=== PATIENT | female | born 1970 | race Caucasian/White ===

== ENCOUNTER → 2016-08-09 | Outpatient (CLI) | payer BC, MEDICARE ==
[2016-08-09 17:30] LABS: Anion Gap 10 mmol/L; Blood Urea Nitrogen 13 mg/dL (7-17); Carbon Dioxide 29 mmol/L (22-30); Chloride 101 mmol/L (98-107); Glucose 85 mg/dL (74-99); Non-African American GFR(MDRD) >60 (>60 ml/min/1.73 sqM); Sodium 140 mmol/L (137-145)
== END | disposition home or self-care (01) ==
LOC: LABWHC1 16:50
PROVIDERS: ATTEND Internal Medicine Critical Care Medicine
DX: R60.9 Edema, unspecified (principal)
CPT/HCPCS: 36415; 80048

== ENCOUNTER → 2016-09-14 | Outpatient (CLI) | payer BC ==
[2016-09-14 18:00] LABS: Rheumatoid Factor, Qnt <9 IU/mL (<12)
[2016-09-14 18:01] LABS: C Reactive Protein 12.7 mg/L (<10.0)
== END | disposition home or self-care (01) ==
LOC: LABWHC1 16:34
PROVIDERS: ATTEND Internal Medicine Critical Care Medicine
DX: M79.7 Fibromyalgia (principal); R53.83 Other fatigue; L65.9 Nonscarring hair loss, unspecified; R52 Pain, unspecified; R50.9 Fever, unspecified; R21 Rash and other nonspecific skin eruption
CPT/HCPCS: 36415; 84439; 84443; 85652; 86038; 86140; 86431

== ENCOUNTER → 2016-09-18 | Outpatient (CLI) | payer BC | END | disposition home or self-care (01) | LOC: LABWHC1 10:38 | PROVIDERS: ATTEND Internal Medicine Critical Care Medicine | DX: M79.7 Fibromyalgia (principal) | CPT/HCPCS: 36415; 86235 ==

== ENCOUNTER → 2017-02-26 | Outpatient (CLI) | payer BC ==
--- NOTE | 2017-02-26 10:47 | MM ---
Reason for exam: additional evaluation requested from prior study. Last mammogram was performed 3 years and 3 months ago. History: Patient is postmenopausal. Family history of breast cancer in maternal aunt and breast cancer in maternal grandmother. Benign right breast aspiration of the right breast, June 15, 2011. Physical Findings: Nurse did not find any significant physical abnormalities on exam. MG 3D Diag Mammo W/Cad ELDER Bilateral CC and MLO view(s) were taken. Prior study comparison: November 18, 2013, bilateral MG diagnostic mammo w CAD ELDER. November 07, 2012, CAD bilateral diagnostic mammogram. The breast tissue is heterogeneously dense. This may lower the sensitivity of mammography. Increasing nodular distortion upper outer right breast with a few internal microcalcifications. These results were verbally communicated with the patient and result sheet given to the patient on 02/26/17. ASSESSMENT: Suspicious, BI-RAD 4 RECOMMENDATION: Stereotactic core biopsy of the right breast. Called Dr. Cross with mammographic findings and has scheduled an appointment for the patient for 03/28/17 at 10:[address] Yates. Biopsy scheduled 03/07/17 at 10:00. PRELIMINARY REPORT CALLED AND FAXED TO DR. YATES ON 02/26/17.
== END | disposition home or self-care (01) ==
LOC: RADMAMWWP 09:00
PROVIDERS: ATTEND Internal Medicine Critical Care Medicine
DX: R92.8 Other abnormal and inconclusive findings on diagnostic imaging of breast (principal)
CPT/HCPCS: G0204; G0279

== ENCOUNTER → 2017-03-07 | Day surgery (SDC) | payer BC ==
[2017-03-07 09:53] VITALS: RESP 16; BMI 35.9
[2017-03-07 11:10] VITALS: BP 121/85; PULSE 85; TEMP 98.2
--- NOTE | 2017-03-07 13:33 | MM ---
EXAMINATION TYPE: MG stereo VAD BX RT DATE OF EXAM: 03/07/2017 COMPARISON: Mammogram 11/18/2013, 02/26/2017 CLINICAL HISTORY: Architectural distortion and calcifications TECHNIQUE: Stereotactic guided core biopsy of right breast. FINDINGS: The procedure of stereotactic guided core biopsy was explained to the patient. Benefits, alternatives, and risks were discussed. An informed consent was then obtained. A timeout was performed. The shortness pathway for biopsy was chosen. Shortness pathway was superior cc approach. Dr. Donaldson performed the targeting and the procedure. A vacuum assisted biopsy gun was used to obtain 6 core samples. The patient tolerated the procedure well without any immediate complication. The patient was kept in the radiology department for short stay after the procedure and then discharged home in stable condition. Targeted calcifications are identified in specimen mammogram. Post biopsy mammogram shows the clip to appear in satisfactory position relative to the targeted area of concern on the preprocedure images. Post procedure mammogram was requested. Surgical clip is within the upper outer aspect right breast corresponding to the architectural distortion. Specimen demonstrates calcifications within the specimen. Given the ultrasound results which likely correspond to the mammographic imaging confirmation of the biopsy site also includes ultrasound abnormalities is recommended. The patient was scheduled for a short-term follow-up exam to relocate findings and see if biopsy changes are at that site. IMPRESSION: 1. Successful stereotactic core biopsy right breast upper outer quadrant. Pathology Results: High Risk BREAST, RIGHT, CORE BIOPSY: FEATURES CONSISTENT WITH INTRADUCTAL PAPILLOMA, FOCALLY SCLEROTIC. BACKGROUND FIBROCYSTIC CHANGES INCLUDING SCLEROSING ADENOSIS , FIBROSIS, CYSTS AND COLUMNAR CELL HYPERPLASIA. Recommendation Surgical consult of the right breast. SEVEN
== END ==
LOC: RADMAMWWP 09:06
PROVIDERS: ATTEND Surgery
DX: N60.21 Fibroadenosis of right breast (principal); N60.31 Fibrosclerosis of right breast; N62 Hypertrophy of breast; Z88.0 Allergy status to penicillin
CPT/HCPCS: 88305; 19081; A4648; J2001

== ENCOUNTER 2017-03-28 10:32 | Day surgery (SDC) | payer BC ==
[2017-03-22 15:37] VITALS: BMI 36.3
[~2017-03-28 10:32] MED LIST: ALPRAZolam 0.5 MG TAB PO PRN; DEXAMETHASONE SOD PHOSPHATE 10 MG/ML 1 ML VIAL IV ONE; HEPARIN SODIUM,PORCINE 5,000 UNIT/ML 1 ML VIAL SQ ONE; HYDROmorphone 0.5 MG/0.5 ML SYRINGE IVP PRN; LACTATED RINGERS 1,000 ML IV SCH; LIDOCAINE 1% 20 ML VIAL (10MG/ML) FOR IV START INTRADERMA PRN; ONDANSETRON 4 MG/2 ML VIAL IVP PRN; Pre Op ABX Message 1 EACH MISC MISCELLANE ONE; SCOPOLAMINE 1.5MG/72HR PATCH TRANSDERM ONE
[2017-03-28] MEDS ORDERED: SODIUM BICARB 4% 5 ML VIAL (0.48 MEQ/ML) MISCELLANE ONE (11:48)
[2017-03-28] MEDS ORDERED: LIDOCAINE 1% INJ 10MG/ML (20 ML MDV) SQ ONE (11:48)
[2017-03-28] MEDS ORDERED: fentaNYL (PF) 50 MCG/ML 2 ML AMP ONE (12:57)
[2017-03-28] MEDS ORDERED: LIDOCAINE 1% INJ 10MG/ML (20 ML MDV) ONE (12:57)
[2017-03-28] MEDS ORDERED: ePHEDrine SULFATE/0.9% NACL/PF 50 MG/5 ML SYRINGE IV ONE (12:57)
[2017-03-28] MEDS ORDERED: MIDAZOLAM 2 MG/2 ML VIAL ONE (12:57)
[2017-03-28] MEDS ORDERED: SUCCINYLCHOLINE CHLORIDE 100 MG/5 ML SYR IV ONE (12:57)
[2017-03-28] MEDS ORDERED: PROPOFOL 10 MG/ML 20 ML VIAL IV ONE (12:57)
[2017-03-28] MEDS ORDERED: SODIUM CHLORIDE 0.9% 50 ML with ceFAZolin 2,000 MG IV ONE ×2 (13:17)
[2017-03-28] MEDS ORDERED: BUPIVACAINE (PF) 0.25% 30 ML VIAL SQ ONE ×2 (13:22)
[2017-03-28 14:10] VITALS: TEMP 98
--- NOTE | 2017-03-28 14:41 | MM ---
EXAMINATION TYPE: MG pre op needle loc RT, MG surgical specimen RT DATE OF EXAM: 03/28/2017 COMPARISON: 02/26/2017 CLINICAL HISTORY: 46-year-old female referred for needle localization biopsy proven intraductal papilloma for excision. TECHNIQUE: Needle localization with wire placement and surgical excision of area of concern in the right breast. FINDINGS: The procedure of needle localization with wire placement and than surgical excision was explained to the patient. Benefits, alternatives, and risks were discussed. An informed consent was then obtained. The shortest pathway for procedure was chosen. Shortest pathway was a lateral approach. The overlying skin was prepped and draped in usual sterile fashion. Lidocaine buffered with bicarbonate was used as anesthetic into the skin and subcutaneous tissue up to the level of area of concern. A 7 cm Kopan's needle was used. It was placed via a lateral approach under mammographic guidance. Subsequent 90 degrees mammogram show the needle to be in satisfactory position relative to the targeted area. At this point, wire was placed and the needle was withdrawn. The wire was fixed to patient's skin. Images were marked for surgeon. The patient tolerated the procedure well without any immediate complication. The patient was kept in the radiology department for short stay after the procedure and then taken to surgery for surgical excision. Wire and targeted microclip are identified in specimen mammogram. The patient was kept in hospital for short stay after the procedure and then discharged home in stable condition. IMPRESSION: Successful, uncomplicated needle localization with wire placement and surgical excision of biopsy-proven intraductal papilloma in the right breast, full pathology results to follow. Pathology Results: Malignant BREAST, RIGHT, IMAGE GUIDED LOCALIZATION AND RESECTION: LOBULAR CARCINOMA IN SITU. INTRADUCTAL PAPILLOMA AND RADIAL SCAR/SCLEROSING LESION. PROLIFERATIVE FIBROCYSTIC CHANGE (STROMAL FIBROSIS, CYST FORMATION, APOCRINE METAPLASIA, ADENOSIS AND DUCT HYPERPLASIA). BIOPSY SITE CHANGE. Recommendation Surgical consult of the right breast. RENED
[2017-03-28] MEDS ORDERED: NALOXONE 0.4 MG/ML 1 ML VIAL IV PRN (14:44)
--- NOTE | 2017-03-28 14:46 | P.OP ---
Date of Procedure: 03/28/17 Procedure(s) Performed: PREOPERATIVE DIAGNOSIS: Abnormal right mammogram POSTOPERATIVE DIAGNOSIS: Same PROCEDURE: Right Breast wire localization biopsy SURGEON: [place] EBL: Minimal ANESTHESIA: Sedation plus local COMPLICATIONS: None OPERATIVE PROCEDURE: Patient was placed on the operating room table in the supine position. The patient's breast was prepped and draped in usual sterile fashion. A curvilinear incision was made adjacent areola at the 9 o'clock position. Dissection through the breast tissue took place until the wire was identified. I followed the wire down into the breast tissue. The breast tissue around the tip of the wire was fully excised using electrocautery. The specimen was sent for specimen radiogram. The clip was present within the specimen. The subcutaneous tissues were inspected. No bleeding was seen. I placed 3 clips at the site of the biopsy in the event that the pathology revealed malignancy. The subcutaneous tissues were closed using 3-0 Vicryl sutures. The skin was closed using a running 4-0 Monocryl stitch. Steri- Strips and sterile dressings were applied. DISPOSITION: Stable to recovery room
[2017-03-28 15:04] VITALS: RESP 18
[2017-03-28 15:21] VITALS: BP 129/80; PULSE 100
== END 2017-03-28 15:50 | disposition home or self-care (01) ==
LOC: OR 10:32
PROVIDERS: ATTEND Surgery
DX: D05.01 Lobular carcinoma in situ of right breast (principal); D24.1 Benign neoplasm of right breast; N60.31 Fibrosclerosis of right breast; N60.81 Other benign mammary dysplasias of right breast; N60.21 Fibroadenosis of right breast; N60.91 Unspecified benign mammary dysplasia of right breast; Z80.3 Family history of malignant neoplasm of breast; J45.909 Unspecified asthma, uncomplicated; M79.7 Fibromyalgia; I10 Essential (primary) hypertension; G43.909 Migraine, unspecified, not intractable, without status migrainosus; Z79.2 Long term (current) use of antibiotics; Z79.891 Long term (current) use of opiate analgesic; Z79.52 Long term (current) use of systemic steroids; Z79.899 Other long term (current) drug therapy; Z98.51 Tubal ligation status
CPT/HCPCS: 88342; 88307; 88341; 76098; 19281; 19125; J2250; J1644; J1100; J2405; J2001; J3010; J0690; J0330; J2704

== ENCOUNTER → 2017-07-16 | Outpatient (CLI) | payer BC ==
[2017-07-16 08:44] VITALS: BP 140/94; PULSE 99; TEMP 98.5; BMI 35.3
--- NOTE | 2017-07-16 09:21 | P.HPOB ---
History of Present Illness H&P Date: 07/16/17 Chief Complaint: Is here for her routine gynecologic exam. This is a 47-year-old with an LMP of 2013. She is status post L AVH for uterine fibroids in 2013. She has occasional mild hot flashes but thinks this may be from that tamoxifen that she takes. She is without gynecologic complaints. She had a breast biopsy within the past 6 months that showed lobular carcinoma in situ. She is followed for her breasts by Dr. Lea and he has her on tamoxifen. Review of Systems Patient's weight has been stable. She denies respiratory, cardiac, or G.I. problems. Past Medical History Past Medical History: Asthma, COPD, Fibromyalgia, GERD/Reflux, Hypertension, Pneumonia, Thyroid Disorder Additional Past Medical History / Comment(s): Right breast lobular carcinoma in situ. Severe persistent bronchial asthma, pseudomonas in lungs in past, migraines, POSSIBLE TIA PER MRI , meniere's , vertigo, low back pain. 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 She tested negative for BRCA. History of Any Multi-Drug Resistant Organisms: None Reported Past Surgical History: Breast Surgery (Multiple biopsies), Hysterectomy (L AVH in 2013 for fibroids), Tubal Ligation Additional Past Surgical History / Comment(s): D&C, ANAL FISSURECTOMY, BRONCHOSCOPIES with last time being 07/29/15, bronchoscopy , D&C, picc line x 2. Past Anesthesia/Blood Transfusion Reactions: Motion Sickness Additional Past Anesthesia/Blood Transfusion Reaction / Comment(s): Pt received blood with hysterectomy without reaction. Past Psychological History: Anxiety, Depression Additional Psychological History / Comment(s): LIVES AT HOME WITH SPOUSE AND 3 CHILDREN,IS INDEPENDANT. Has nebulizer. 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 - Past Family History Father History Unknown: Yes Additional Family Medical History / Comment(s): A maternal aunt and maternal grandmother had breast cancer. Mother Family Medical History: Thyroid Disorder Additional Family Medical History / Comment(s): GRAVES DISEASE, DIVERTICULITIS Medications and Allergies Home Medications Medication Instructions Recorded Confirmed Type ALPRAZolam [Xanax] 0.5 mg PO BID PRN 08/26/14 07/16/17 History Cyclobenzaprine [Flexeril] 10 mg PO HS 08/26/14 07/16/17 History Montelukast [Singulair] 10 mg PO HS 08/26/14 07/16/17 History EPINEPHrine (Auto Inject) [Epipen] 0.3 mg IM DAILY PRN 07/15/15 07/16/17 History Magnesium 500 mg PO BID 07/15/15 07/16/17 History Omalizumab [Xolair] 300 mg SQ Q30D 07/15/15 07/16/17 History Gabapentin [Neurontin] 300 mg PO BID 02/26/17 07/16/17 History HYDROcodone/APAP 7.5-325MG [[place] 1 tab PO TID PRN 02/26/17 07/16/17 History 7.5-325] Ipratropium-Albuterol Nebulize 3 ml INHALATION RT-QID PRN 03/22/17 07/16/17 History [Duoneb 0.5 mg-3 mg/3 ml Soln] Albuterol Sulfate [Proair mcg PO PRN 07/16/17 07/16/17 History Respiclick] Rfqlaewwuf-NFG-Xwwewha-Codeine cap PO Q4-6H 07/16/17 History [Fiorinal w/Cod 03-706-53-30MG] Cholecalciferol [Vitamin D3] unit PO TID 07/16/17 History Cyanocobalamin (Vitamin B-12) mcg PO DAILY 07/16/17 History [Vitamin B12] Milnacipran HCl [Savella] mg PO BID 07/16/17 History Potassium mg PO DAILY 07/16/17 History Tamoxifen Citrate 20 mg PO HS 07/16/17 07/16/17 History Allergies Allergy/AdvReac Type Severity Reaction Status Date / Time No Known Allergies Allergy Verified 07/16/17 08:09 Exam - Vital Signs Vital signs: Vital Signs Temp Pulse BP 07/16/17 08:08 98.5 F 99 140/94 Intake and Output 07/15/17 07/16/17 07/16/17 22:59 06:59 14:59 Other: Weight 99.337 kg Height 5'6", BMI 35.3. This is a well-developed well-nourished white female who is alert and oriented times 3 in no acute distress. HEENT: Within normal limits. NECK: Supple without mass or thyromegaly. CHEST AND LUNGS: Clear to auscultation. HEART: Regular rate and rhythm. BREASTS: Are without mass or discharge. There is central nipple inversion of the left breast. The right breast nipple is not inverted. AXILLARY EXAM: Negative for adenopathy. BACK: Negative for CVA tenderness. ABDOMEN: Soft, nontender, without palpable masses. PELVIC EXAM: External genitalia appears normal without significant atrophy. Vagina appears normal without atrophy. There is no evidence of prolapse. Bimanual examination is negative for mass or tenderness. RECTAL EXAM: Rectal exam is negative for mass or tenderness and is negative for occult blood. EXTREMITIES: Nontender. IMPRESSION: 1. 47-year-old female status post LAVH for benign reasons with normal gynecologic exam. 2. History of right breast lobular carcinoma in situ with family history of breast cancer who is on tamoxifen. 3. Negative testing for BRCA per the patient. PLAN: 1. Pap smears have been discontinued. 2. Self breast awareness was discussed. 3. I have recommended that she check her blood pressure on a regular basis and she states she will do this at work. She will follow-up with Dr. Cross for blood pressure elevations. 4. She states she will do her mammograms through Dr. Lea and she believes she is due for one in the next 2 months. 5. Osteoporosis prevention was discussed. 6. She will return one year.
== END | disposition home or self-care (01) ==
LOC: WWCWWP 07:41
PROVIDERS: ATTEND Obstetrics & Gynecology
DX: Z01.419 Encounter for gynecological examination (general) (routine) without abnormal findings (principal)

== ENCOUNTER → 2017-07-26 | Outpatient (CLI) | payer BC ==
[2017-07-26 17:32] LABS: Magnesium 2.1 mg/dL (1.6-2.3); Phosphorus 3.6 mg/dL (2.5-4.5)
[2017-07-27 00:47] LABS: Iron Saturation 13.32 (12.00-45.00)
[2017-07-27 00:57] LABS: Folate, Serum 15.7 ng/mL
== END | disposition home or self-care (01) ==
LOC: LABWHC1 16:35
PROVIDERS: ATTEND Internal Medicine Critical Care Medicine
DX: M79.7 Fibromyalgia (principal); I10 Essential (primary) hypertension; J45.909 Unspecified asthma, uncomplicated
CPT/HCPCS: 36415; 82607; 82728; 82746; 83540; 83550; 83735; 84100; 84132

== ENCOUNTER → 2017-09-24 | Outpatient (CLI) | payer BC ==
--- NOTE | 2017-09-24 08:57 | MM ---
Reason for exam: follow-up at short interval from prior study. Last mammogram was performed 7 months ago. History: Patient is postmenopausal, has history of breast cancer at age 46, and has history of high-risk lesion on a previous biopsy at age 46. Family history of breast cancer in maternal aunt at age 50 and breast cancer in maternal grandmother. Malignant MG pre op needle loc RT of the right breast, March 28, 2017. High risk MG stereo VAD BX RT of the right breast, March 07, 2017. Benign right breast aspiration of the right breast, June 15, 2011. Taking antineoplastic for 6 months beginning at age 46. Physical Findings: Nurse did not find any significant physical abnormalities on exam. MG Diagnostic Mammo RT w CAD CC, MLO, and XCCL view(s) were taken of the right breast. Prior study comparison: February 26, 2017, bilateral MG 3d diag mammo w/cad ELDER. November 18, 2013, bilateral MG diagnostic mammo w CAD ELDER. The breast tissue is heterogeneously dense. This may lower the sensitivity of mammography. Finding: There are clips in the upper outer quadrant, posterior middle position of the right breast. There is a chronic nodularity in the right breast. There is no discrete abnormality. These results were verbally communicated with the patient and result sheet given to the patient on 09/24/17. ASSESSMENT: Benign, BI-RAD 2 RECOMMENDATION: Follow-up diagnostic mammogram of both breasts in 6 months. Back on schedule for February 2018.
== END | disposition home or self-care (01) ==
LOC: RADMAMWWP 06:59
PROVIDERS: ATTEND Surgery
DX: R92.8 Other abnormal and inconclusive findings on diagnostic imaging of breast (principal)
CPT/HCPCS: 77065

== ENCOUNTER → 2018-03-18 | Outpatient (CLI) | payer BC ==
--- NOTE | 2018-03-22 13:49 | MM ---
Reason for exam: follow-up at short interval from prior study. Last mammogram was performed 6 months ago. History: Patient is postmenopausal, has history of breast cancer at age 46, and has history of high-risk lesion on a previous biopsy at age 46. Family history of breast cancer in maternal aunt at age 50 and breast cancer in maternal grandmother. Malignant MG pre op needle loc RT of the right breast, March 28, 2017. High risk MG stereo VAD BX RT of the right breast, March 07, 2017. Benign right breast aspiration of the right breast, June 15, 2011. Taking tamoxifen beginning at age 46. Taking antineoplastic for 6 months beginning at age 46. Physical Findings: Nurse did not find any significant physical abnormalities on exam. MG 3D Diag Mammo W/Cad ELDER Bilateral CC and MLO view(s) were taken. XCCL view(s) were taken of the left breast. Prior study comparison: September 24, 2017, right breast MG diagnostic mammo RT w CAD. February 26, 2017, bilateral MG 3d diag mammo w/cad ELDER. The breast tissue is heterogeneously dense. This may lower the sensitivity of mammography. Post surgical changes right breast with lumpectomy scar. Stable small adjacent nodule, likely cyst, smaller from 2016. Six month follow up to assess evolving post biopsy changes. These results were verbally communicated with the patient and result sheet given to the patient on 03/18/18. ASSESSMENT: Probably benign, BI-RAD 3 RECOMMENDATION: Follow-up diagnostic mammogram of the right breast in 6 months.
== END | disposition home or self-care (01) ==
LOC: RADMAMWWP 08:13
PROVIDERS: ATTEND Surgery
DX: R92.8 Other abnormal and inconclusive findings on diagnostic imaging of breast (principal)
CPT/HCPCS: 77062; 77066

== ENCOUNTER → 2018-10-28 | Outpatient (CLI) | payer BC ==
--- NOTE | 2018-10-28 10:19 | MM ---
Reason for exam: follow-up at short interval from prior study. Last mammogram was performed 7 months ago. History: Patient is postmenopausal, has history of breast cancer at age 46, and has history of high-risk lesion on a previous biopsy at age 46. Family history of breast cancer in maternal aunt at age 50 and breast cancer in maternal grandmother. Malignant MG pre op needle loc RT of the right breast, March 28, 2017. High risk MG stereo VAD BX RT of the right breast, March 07, 2017. Benign right breast aspiration of the right breast, June 15, 2011. Taking tamoxifen beginning at age 46. Taking antineoplastic for 6 months beginning at age 46. Physical Findings: Nurse did not find any significant physical abnormalities on exam. MG Diagnostic Mammo RT w CAD CC and MLO view(s) were taken of the right breast. Prior study comparison: March 18, 2018, bilateral MG 3d diag mammo w/cad ELDER. September 24, 2017, right breast MG diagnostic mammo RT w CAD. The breast tissue is heterogeneously dense. This may lower the sensitivity of mammography. There is stable clips and architectural distortion in the upper outer posterior middle right breast. There is no discrete abnormality. These results were verbally communicated with the patient and result sheet given to the patient on 10/28/18. ASSESSMENT: Benign, BI-RAD 2 RECOMMENDATION: Follow-up diagnostic mammogram of both breasts in 6 months. Back on schedule.
== END | disposition home or self-care (01) ==
LOC: RADMAMWWP 08:16
PROVIDERS: ATTEND Surgery
DX: R92.8 Other abnormal and inconclusive findings on diagnostic imaging of breast (principal)
CPT/HCPCS: 77065

== ENCOUNTER 2019-06-05 09:54 | Emergency (ER) | payer BC ==
[2019-06-05 10:01] VITALS: RESP 18; TEMP 99.3
[2019-06-05] MEDS ORDERED: predniSONE 50 MG TAB PO STA (10:17)
[2019-06-05] MEDS ORDERED: ALBUTEROL NEBULIZED 2.5 MG/3 ML INHALATION STA (10:17)
--- NOTE | 2019-06-05 10:23 | ED ---
SOB HPI - General Chief Complaint: Shortness of Breath Stated Complaint: Cough Time Seen by Provider: 06/05/19 10:02 Source: patient Mode of arrival: ambulatory Limitations: no limitations - History of Present Illness Initial Comments: 48-year-old female with history of asthma presenting today for chief complaint of cough, body aches, sore throat, SOB x 2-3 days. Patient states the past 23 days she has had cough sore throat body aches and shortness of breath. She states that she does not take daily steroids for her asthma nor inhaled steroid she states she is only prescribed a rescue inhaler as well as nebulized treatments. Patient sates she has not tried home nebulizer treatments she's only had used a rescue inhaler. Patient denies recording a fever. Patient denies any headache neck stiffness vomiting diarrhea or abdominal pain. Patient denies recent travel, or COVID-19 exposures. Patient states he daughter has the same symptoms. Patient has no other complaints. She states she called Dr. Cabezas's office not speaking wtih the physician and because they were not open it was recommended she come to the ER for evaluation. Pt does not appears SOB, she is oxygenating well on RA, appears nontoxic. - Related Data Home Medications Medication Instructions Recorded Confirmed ALPRAZolam [Xanax] 0.5 mg PO BID PRN 08/26/14 07/16/17 Cyclobenzaprine [Flexeril] 10 mg PO HS 08/26/14 07/16/17 Montelukast [Singulair] 10 mg PO HS 08/26/14 07/16/17 EPINEPHrine (Auto Inject) [Epipen] 0.3 mg IM DAILY PRN 07/15/15 07/16/17 Magnesium 500 mg PO BID 07/15/15 07/16/17 Omalizumab [Xolair] 300 mg SQ Q30D 07/15/15 07/16/17 Gabapentin [Neurontin] 300 mg PO BID 02/26/17 07/16/17 HYDROcodone/APAP 7.5-325MG [[place] 1 tab PO TID PRN 02/26/17 07/16/17 7.5-325] Ipratropium-Albuterol Nebulize 3 ml INHALATION RT-QID PRN 03/22/17 07/16/17 [Duoneb 0.5 mg-3 mg/3 ml Soln] Albuterol Sulfate [Proair mcg PO PRN 07/16/17 07/16/17 Respiclick] Xyvltjnnpi-FOI-Yozkuou-Codeine cap PO Q4-6H 07/16/17 [Fiorinal w/Cod 34-439-36-30MG] Cholecalciferol [Vitamin D3] unit PO TID 07/16/17 Cyanocobalamin (Vitamin B-12) mcg PO DAILY 07/16/17 [Vitamin B12] Milnacipran HCl [Savella] mg PO BID 07/16/17 Potassium mg PO DAILY 07/16/17 Tamoxifen Citrate 20 mg PO HS 07/16/17 07/16/17 Previous Rx's Medication Instructions Recorded predniSONE 50 mg PO DAILY 4 Days #4 tab 06/05/19 Allergies Allergy/AdvReac Type Severity Reaction Status Date / Time No Known Allergies Allergy Verified 06/05/19 09:56 Review of Systems ROS Statement: Those systems with pertinent positive or pertinent negative responses have been documented in the HPI. ROS Other: All systems not noted in ROS Statement are negative. Past Medical History Past Medical History: Asthma, COPD, Fibromyalgia, GERD/Reflux, Hypertension, Pneumonia, Thyroid Disorder Additional Past Medical History / Comment(s): Right breast lobular carcinoma in situ. Severe persistent bronchial asthma, pseudomonas in lungs in past, migra jeferson, POSSIBLE TIA PER MRI , meniere's , vertigo, low back pain. 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 She tested negative for BRCA. History of Any Multi-Drug Resistant Organisms: None Reported Past Surgical History: Breast Surgery, Hysterectomy, Tubal Ligation Additional Past Surgical History / Comment(s): D&C, ANAL FISSURECTOMY, BRONCHOSCOPIES with last time being 07/29/15, bronchoscopy , D&C, picc line x 2. Past Anesthesia/Blood Transfusion Reactions: Motion Sickness Additional Past Anesthesia/Blood Transfusion Reaction / Comment(s): Pt received blood with hysterectomy without reaction. Past Psychological History: Anxiety, Depression Smoking Status: Never smoker Past Alcohol Use History: Occasional Past Drug Use History: None Reported - Past Family History Father History Unknown: Yes Additional Family Medical History / Comment(s): A maternal aunt and maternal grandmother had breast cancer. Mother Family Medical History: Thyroid Disorder Additional Family Medical History / Comment(s): GRAVES DISEASE, DIVERTICULITIS General Exam - General Exam Comments Initial Comments: General: The patient is awake and alert, in no distress Eye: +3 mm pupils are equal, round and reactive to light, extra-ocular movements are intact. No nystagmus. There is normal conjunctiva bilaterally. No signs of icterus. No photophobia Ears, nose, mouth and throat: There are moist mucous membranes and no oral lesions. Oropharynx was not erythematous there is no tonsillar enlargement exudates or lesions. Uvula midline. Tympanic membranes are not erythematous or is no effusions bulging or retraction. No tenderness to palpation of the mastoid. No anterior cervical lymphadenopathy. Rhinorrhea, clear and bilateral nares. No tripoding, no drooling. Neck: The neck is supple, there is no tenderness or JVD. No nuchal rigidity negative Brudzinski and Kernig Cardiovascular: There is a regular rate and rhythm. No murmur, rub or gallop is appreciated. Respiratory: Lung sounds are slightly diminished, respirations are non-labored, breath sounds are equal. No obvious wheezes, stridor, rales, or rhonchi. No retractions or abdominal breathing. Gastrointestinal: Soft, non-distended, non-tender abdomen without masses or organomegaly noted. There is no rebound or guarding present. Bowel sounds are unremarkable. Musculoskeletal: Normal ROM, no tenderness. Strength 5/5. Sensation intact. Radial pulses equal bilaterally 2+. Neurological: A&O x 3. CN II-XII intact grossly, There are no obvious motor or sensory deficits. Coordination appears grossly intact. Speech appears normal, no muffling. Skin: Skin is warm and dry and no rashes or lesions are noted. No extremity edema Psychiatric: Cooperative Limitations: no limitations Course Vital Signs 06/05/19 06/05/19 06/05/19 09:57 10:00 11:00 Temperature 99.3 F Pulse Rate 116 H 92 Respiratory 18 18 18 Rate Blood Pressure 137/76 122/82 O2 Sat by Pulse 100 98 Oximetry 06/05/19 06/05/19 06/05/19 11:18 11:28 11:53 Temperature Pulse Rate 116 H 116 H 94 Respiratory 18 Rate Blood Pressure 121/82 O2 Sat by Pulse 98 Oximetry 06/05/19 12:02 Temperature Pulse Rate 93 Respiratory 18 Rate Blood Pressure 119/80 O2 Sat by Pulse 98 Oximetry - Reevaluation(s) Reevaluation #1: I evaluated patient at 11:40 she states that the pulse ox was just placed on her finger and she had not had in on since triage. It appears as though someone has pulled through values from original recording in triage. HR on monitor was 92bpm. 06/05/19 Medical Decision Making - Medical Decision Making 48-year-old female presenting for cough congestion sore throat. No recorded fevers. Chest x-ray clear. Patient has slightly diminished lung sounds are no wheeze improvement of lung somnolence which are clear after one albuterol treatment. Patient does not appear toxic nor respiratory distress. She appears well. Patient's vital signs upon repeat within acceptable limits. Labs stable. I recommended 14 day quarantine and PCP f/u and strict return parameters patient is agreeable to this care plan and was discharged with oral steroids as I feel this is most likely viral in origin. - Lab Data Result diagrams: 06/05/19 10:57 06/05/19 10:57 Lab Results 06/05/19 06/05/19 Range/Units 10:57 10:57 WBC 5.3 (3.8-10.6) k/uL RBC 4.38 (3.80-5.40) m/uL Hgb 12.2 (11.4-16.0) gm/dL Hct 36.6 (34.0-46.0) % MCV 83.6 (80.0-100.0) fL MCH 27.8 (25.0-35.0) pg MCHC 33.3 (31.0-37.0) g/dL RDW 13.0 (11.5-15.5) % Plt Count 345 (150-450) k/uL Neutrophils % 63 % Lymphocytes % 23 % Monocytes % 5 % Eosinophils % 7 % Basophils % 0 % Neutrophils # 3.3 (1.3-7.7) k/uL Lymphocytes # 1.2 (1.0-4.8) k/uL Monocytes # 0.2 (0-1.0) k/uL Eosinophils # 0.4 (0-0.7) k/uL Basophils # 0.0 (0-0.2) k/uL Sodium 138 (137-145) mmol/L Potassium 3.8 (3.5-5.1) mmol/L Chloride 106 (98-107) mmol/L Carbon Dioxide 26 (22-30) mmol/L Anion Gap 6 mmol/L BUN 13 (7-17) mg/dL Creatinine 0.68 (0.52-1.04) mg/dL Est GFR (CKD-EPI)AfAm >90 (>60 ml/min/1.73 sqM) Est GFR (CKD-EPI)NonAf >90 (>60 ml/min/1.73 sqM) Glucose 84 (74-99) mg/dL Calcium 9.4 (8.4-10.2) mg/dL Total Bilirubin 0.3 (0.2-1.3) mg/dL AST 22 (14-36) U/L ALT 13 (4-34) U/L Alkaline Phosphatase 54 (38-126) U/L Total Protein 7.0 (6.3-8.2) g/dL Albumin 4.0 (3.5-5.0) g/dL Disposition Clinical Impression: Cough, Sore throat, Body aches, History of asthma Disposition: HOME SELF-CARE Condition: Good Instructions (If sedation given, give patient instructions): Asthma (ED), Upper Respiratory Infection (ED) Additional Instructions: Please use medication as discussed. Please follow-up with family doctor in the next 2 days, please self quarantine for the next 14 days. Please return to emergency room if the symptoms increase or worsen or for any other concerns. Prescriptions: predniSONE 50 mg PO DAILY 4 Days #4 tab Is patient prescribed a controlled substance at d/c from ED?: No Referrals: Vimal Cross DO [Primary Care Provider] - 1-2 days Time of Disposition: 11:41
[2019-06-05 11:10] LABS: Basophils % (A) 0 %; Eosinophils # (A) 0.4 k/uL (0-0.7); Eosinophils % (A) 7 %; HCT 36.6 % (34.0-46.0); HGB 12.2 gm/dL (11.4-16.0); Lymphocytes # (A) 1.2 k/uL (1.0-4.8); Lymphocytes % (A) 23 %; MCH 27.8 pg (25.0-35.0); MCHC 33.3 g/dL (31.0-37.0); MCV 83.6 fL (80.0-100.0); Mean Platelet Volume 7.3; Monocytes # (A) 0.2 k/uL (0-1.0); Monocytes % (A) 5 %; Neutrophils # (A) 3.3 k/uL (1.3-7.7); Neutrophils % (A) 63 %; Platelet Count 345 k/uL (150-450); RBC 4.38 m/uL (3.80-5.40); WBC 5.3 k/uL (3.8-10.6)
--- NOTE | 2019-06-05 11:12 | XR ---
EXAMINATION TYPE: XR chest 1V DATE OF EXAM: 06/05/2019 COMPARISON: 02/06/2016 HISTORY: Cough, sore throat, shortness of breath TECHNIQUE: Single frontal view of the chest is obtained. FINDINGS: There is no focal air space opacity, pleural effusion, or pneumothorax seen. The cardiac silhouette size is within normal limits of size however rotated given patient positioning. Dextrosco liosis of the thoracic spine is seen. The osseous structures are intact. IMPRESSION: No acute cardiopulmonary process.
[2019-06-05 11:26] LABS: ALT 13 U/L (4-34); AST 22 U/L (14-36); African American GFR (CKD) >90 (>60 ml/min/1.73 sqM); Alkaline Phosphatase 54 U/L (38-126); Anion Gap 6 mmol/L; Blood Urea Nitrogen 13 mg/dL (7-17); Calcium 9.4 mg/dL (8.4-10.2); Carbon Dioxide 26 mmol/L (22-30); Chloride 106 mmol/L (98-107); Glucose 84 mg/dL (74-99); Non-African American GFR(CKD) >90 (>60 ml/min/1.73 sqM); Potassium 3.8 mmol/L (3.5-5.1); Sodium 138 mmol/L (137-145); Total Bilirubin 0.3 mg/dL (0.2-1.3)
[2019-06-05 12:06] VITALS: BP 119/80; PULSE 93
== END 2019-06-05 12:05 | disposition home or self-care (01) ==
LOC: EC 09:54
DX: J02.9 Acute pharyngitis, unspecified (principal); R05 Cough; R52 Pain, unspecified; R09.89 Other specified symptoms and signs involving the circulatory and respiratory systems; J44.9 Chronic obstructive pulmonary disease, unspecified; M79.7 Fibromyalgia; D05.01 Lobular carcinoma in situ of right breast; F32.9 Major depressive disorder, single episode, unspecified; F41.9 Anxiety disorder, unspecified; Z79.810 Long term (current) use of selective estrogen receptor modulators (SERMs); Z79.891 Long term (current) use of opiate analgesic; Z79.899 Other long term (current) drug therapy; Z86.69 Personal history of other diseases of the nervous system and sense organs; Z87.01 Personal history of pneumonia (recurrent); Z98.890 Other specified postprocedural states
CPT/HCPCS: 36415; 94640; 80053; 85025; 71045; 99285; J7512

== ENCOUNTER → 2020-05-20 | Outpatient (CLI) | payer BC ==
--- NOTE | 2020-05-20 13:03 | XR ---
Right elbow HISTORY: Pain one month after injury 3 views of left elbow Bone mineralization, joint spaces and alignment are maintained. No evident elbow joint effusion. IMPRESSION: No fracture or dislocation. Consider elbow MRI.
== END | disposition home or self-care (01) ==
LOC: LABWHC1 12:41
PROVIDERS: ATTEND Nurse Practitioner Adult Health
DX: M25.522 Pain in left elbow (principal)

== ENCOUNTER → 2020-06-29 | Outpatient (CLI) | payer BC ==
--- NOTE | 2020-06-29 09:03 | MM ---
Reason for exam: additional evaluation requested from prior study. Last mammogram was performed 1 year and 8 months ago. History: Patient is postmenopausal, has history of breast cancer at age 46, and has history of high-risk lesion on a previous biopsy at age 46. Family history of breast cancer in maternal aunt at age 50 and breast cancer in maternal grandmother. Malignant MG pre op needle loc RT of the right breast, March 28, 2017. High risk MG stereo VAD BX RT of the right breast, March 07, 2017. Benign right breast aspiration of the right breast, June 15, 2011. Taking tamoxifen beginning at age 46. Taking antineoplastic for 6 months beginning at age 46. Physical Findings: Nurse did not find any significant physical abnormalities on exam. MG 3D Diag Mammo W/Cad ELDER Bilateral CC and MLO view(s) were taken. Prior study comparison: October 28, 2018, right breast MG diagnostic mammo RT w CAD. March 18, 2018, bilateral MG 3d diag mammo w/cad ELDER. The breast tissue is heterogeneously dense. This may lower the sensitivity of mammography. No suspicious calcifications are seen. Stable post lumpectomy changes right breast. No significant new findings when compared with previous films. These results were verbally communicated with the patient and result sheet given to the patient on 06/29/20. ASSESSMENT: Benign, BI-RAD 2 RECOMMENDATION: Follow-up diagnostic mammogram of both breasts in 1 year.
== END | disposition home or self-care (01) ==
LOC: RADMAMWWP 07:04
PROVIDERS: ATTEND Internal Medicine
DX: R92.2 Inconclusive mammogram (principal); Z85.3 Personal history of malignant neoplasm of breast; Z80.3 Family history of malignant neoplasm of breast
CPT/HCPCS: 77062; 77066

== ENCOUNTER → 2020-11-15 | Outpatient (CLI) | payer BC | END | disposition home or self-care (01) | LOC: LABWHC1 14:10 | PROVIDERS: ATTEND Emergency Medicine | DX: Z20.822 Contact with and (suspected) exposure to COVID-19 (principal) | CPT/HCPCS: 87635; C9803 ==

== ENCOUNTER 2020-11-16 13:10 | Emergency (ER) | payer BC ==
[2020-11-16] MEDS ORDERED: KETOROLAC 15 MG/ML 1 ML VIAL IVP STA (13:32)
[2020-11-16] MEDS ORDERED: ACETAMINOPHEN TAB 500 MG TAB PO STA (13:32)
[2020-11-16] MEDS ORDERED: SODIUM CHLORIDE 0.9% 1,000 ML IV STA ×2 (13:33→14:50)
[2020-11-16 14:28] LABS: Basophils % (A) 0 %; Eosinophils # (A) 0.2 k/uL (0-0.7); Eosinophils % (A) 2 %; HGB 14.9 gm/dL (11.4-16.0); Lymphocytes # (A) 0.9 k/uL (1.0-4.8); Lymphocytes % (A) 7 %; MCH 28.7 pg (25.0-35.0); MCV 84.4 fL (80.0-100.0); Mean Platelet Volume 7.5; Monocytes # (A) 0.9 k/uL (0-1.0); Monocytes % (A) 7 %; Neutrophils # (A) 11.1 k/uL (1.3-7.7); Neutrophils % (A) 84 %; Platelet Count 326 k/uL (150-450); RBC 5.21 m/uL (3.80-5.40); RDW 13.3 % (11.5-15.5); WBC 13.3 k/uL (3.8-10.6)
[2020-11-16 14:38] LABS: Albumin 4.6 g/dL (3.5-5.0); Calcium 10.3 mg/dL (8.4-10.2); Potassium 3.8 mmol/L (3.5-5.1); Total Bilirubin 0.6 mg/dL (0.2-1.3); Total Protein 7.9 g/dL (6.3-8.2)
[2020-11-16 14:39] LABS: Appearance,Urine Cloudy (Clear); Bacteria,Urine Rare /hpf; Bilirubin,Urine 1+ (Negative); Blood,Urine Small (Negative); Color,Urine Dark Brown; Glucose,Urine (UA) Negative (Negative); Ketones,Urine Negative (Negative); Leukocyte Esterase,Urine Large (Negative); Mucus,Urine Rare /hpf; Nitrite,Urine Positive (Negative); PH, Urine 6.5 (5.0-8.0); Protein,Urine 1+ (Negative); RBC,Urine 32 /hpf (0-5); Specific Gravity,Urine 1.015 (1.001-1.035); WBC,Urine >182 /hpf (0-5)
--- NOTE | 2020-11-16 14:39 | ED ---
General Adult HPI - General Chief complaint: Upper Respiratory Infection Stated complaint: Bladder Infection/Headache Time Seen by Provider: 11/16/20 13:26 Source: patient, RN notes reviewed Mode of arrival: ambulatory Limitations: no limitations - History of Present Illness Initial comments: 50-year-old female with a past medical history of asthma, COPD, fibromyalgia, GERD, hypertension presents to the emergency room for a chief complaint of cough. Patient reports that for about 5 days now she has been sick with a cough and congestion. States she has had fevers as well as body aches. States she has tested negative twice now for coronavirus. Patient is also currently being treated for urinary tract infection with Bactrim. This started on Saturday as well.Patient has no other complaints at this time including shortness of breath, chest pain, abdominal pain, nausea or vomiting, headache, or visual changes. - Related Data Home Medications Medication Instructions Recorded Confirmed ALPRAZolam [Xanax] 0.5 mg PO BID PRN 08/26/14 07/16/17 Cyclobenzaprine [Flexeril] 10 mg PO HS 08/26/14 07/16/17 Montelukast [Singulair] 10 mg PO HS 08/26/14 07/16/17 EPINEPHrine (Auto Inject) [Epipen] 0.3 mg IM DAILY PRN 07/15/15 07/16/17 Magnesium 500 mg PO BID 07/15/15 07/16/17 Omalizumab [Xolair] 300 mg SQ Q30D 07/15/15 07/16/17 Gabapentin [Neurontin] 300 mg PO BID 02/26/17 07/16/17 HYDROcodone/APAP 7.5-325MG [[place] 1 tab PO TID PRN 02/26/17 07/16/17 7.5-325] Ipratropium-Albuterol Nebulize 3 ml INHALATION RT-QID PRN 03/22/17 07/16/17 [Duoneb 0.5 mg-3 mg/3 ml Soln] Albuterol Sulfate [Proair mcg PO PRN 07/16/17 07/16/17 Respiclick] Noaibxyisk-JGM-Zaitrkx-Codeine cap PO Q4-6H 07/16/17 [Fiorinal w/Cod 02-868-22-30MG] Cholecalciferol [Vitamin D3] unit PO TID 07/16/17 Cyanocobalamin (Vitamin B-12) mcg PO DAILY 07/16/17 [Vitamin B12] Milnacipran HCl [Savella] mg PO BID 07/16/17 Potassium mg PO DAILY 07/16/17 Tamoxifen Citrate 20 mg PO HS 07/16/17 07/16/17 Previous Rx's Medication Instructions Recorded predniSONE 50 mg PO DAILY 4 Days #4 tab 06/05/19 Ciprofloxacin HCl [Cipro] 500 mg PO Q12HR 7 Days #14 tab 11/16/20 Allergies Allergy/AdvReac Type Severity Reaction Status Date / Time No Known Allergies Allergy Verified 11/16/20 13:19 Review of Systems ROS Statement: Those systems with pertinent positive or pertinent negative responses have been documented in the HPI. ROS Other: All systems not noted in ROS Statement are negative. Past Medical History Past Medical History: Asthma, COPD, Fibromyalgia, GERD/Reflux, Hypertension, Pneumonia, Thyroid Disorder Additional Past Medical History / Comment(s): Right breast lobular carcinoma in situ. Severe persistent bronchial asthma, pseudomonas in lungs in past, migraines, POSSIBLE TIA PER MRI , meniere's , vertigo, low back pain. 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 She tested negative for BRCA. History of Any Multi-Drug Resistant Organisms: None Reported Past Surgical History: Breast Surgery, Hysterectomy, Tubal Ligation Additional Past Surgical History / Comment(s): D&C, ANAL FISSURECTOMY, BRONCHOSC OPIES with last time being 07/29/15, bronchoscopy , D&C, picc line x 2. Past Anesthesia/Blood Transfusion Reactions: Motion Sickness Additional Past Anesthesia/Blood Transfusion Reaction / Comment(s): Pt received blood with hysterectomy without reaction. Past Psychological History: Anxiety, Depression Smoking Status: Never smoker Past Alcohol Use History: Occasional Past Drug Use History: None Reported - Past Family History Father History Unknown: Yes Additional Family Medical History / Comment(s): A maternal aunt and maternal grandmother had breast cancer. Mother Family Medical History: Thyroid Disorder Additional Family Medical History / Comment(s): GRAVES DISEASE, DIVERTICULITIS General Exam Limitations: no limitations General appearance: alert, in no apparent distress Head exam: Present: atraumatic Eye exam: Present: normal appearance, PERRL, EOMI. Absent: scleral icterus, conjunctival injection ENT exam: Present: normal exam, mucous membranes moist Neck exam: Present: normal inspection, full ROM. Absent: tenderness Respiratory exam: Present: normal lung sounds bilaterally. Absent: respiratory distress, wheezes Cardiovascular Exam: Present: regular rate, normal rhythm, normal heart sounds GI/Abdominal exam: Present: soft, normal bowel sounds. Absent: distended, tenderness Course Vital Signs 11/16/20 11/16/20 13:19 15:06 Temperature 100.3 F H 100.9 F H Pulse Rate 125 H 111 H Respiratory 16 18 Rate Blood Pressure 106/71 153/81 O2 Sat by Pulse 97 98 Oximetry EKG Findings - EKG Comments: EKG Findings:: Normal sinus rhythm, ventricular rate 87, pr int 130, QTC 433 Medical Decision Making - Medical Decision Making pt is febrile however vitals are stable. Tachycardia of 125 likely reflexive. This did improve to 111. Patient was given Toradol and Tylenol for fever. She was also given Toradol for pain. CBC does show leukocytosis of 13. CMP is unre markable. Chest x-ray shows a correlate for bronchitis which could be a source of patient's fever. However, rotavirus is negative. Urinalysis does have a positive nitrate urine with 182 white blood cells and rare bacteria. She does have some left CVA tenderness. Patient likely also has a pyelonephritis. Patient has been taking Bactrim for 3 doses now. Given she is still febrile we will change her antibiotic to Cipro however urine will be cultured. She was given 2 g of Rocephin and 2 L of fluid. Patient can be discharged home to follow up with primary care. She should return here for any worsening symptoms. - Lab Data Result diagrams: 11/16/20 13:59 11/16/20 13:59 Lab Results 11/16/20 11/16/20 11/16/20 Range/Units 13:59 13:59 13:59 WBC 13.3 H (3.8-10.6) k/uL RBC 5.21 (3.80-5.40) m/uL Hgb 14.9 (11.4-16.0) gm/dL Hct 44.0 (34.0-46.0) % MCV 84.4 (80.0-100.0) fL MCH 28.7 (25.0-35.0) pg MCHC 34.0 (31.0-37.0) g/dL RDW 13.3 (11.5-15.5) % Plt Count 326 (150-450) k/uL MPV 7.5 Neutrophils % 84 % Lymphocytes % 7 % Monocytes % 7 % Eosinophils % 2 % Basophils % 0 % Neutrophils # 11.1 H (1.3-7.7) k/uL Lymphocytes # 0.9 L (1.0-4.8) k/uL Monocytes # 0.9 (0-1.0) k/uL Eosinophils # 0.2 (0-0.7) k/uL Basophils # 0.0 (0-0.2) k/uL Sodium 137 (137-145) mmol/L Potassium 3.8 (3.5-5.1) mmol/L Chloride 97 L (98-107) mmol/L Carbon Dioxide 28 (22-30) mmol/L Anion Gap 12 mmol/L BUN 12 (7-17) mg/dL Creatinine 0.95 (0.52-1.04) mg/dL Est GFR (CKD-EPI)AfAm 81 (>60 ml/min/1.73 sqM) Est GFR (CKD-EPI)NonAf 71 (>60 ml/min/1.73 sqM) Glucose 105 H (74-99) mg/dL Calcium 10.3 H (8.4-10.2) mg/dL Total Bilirubin 0.6 (0.2-1.3) mg/dL AST 30 (14-36) U/L ALT 23 (4-34) U/L Alkaline Phosphatase 112 (38-126) U/L Total Protein 7.9 (6.3-8.2) g/dL Albumin 4.6 (3.5-5.0) g/dL Urine Color Dark Brown Urine Appearance Cloudy H (Clear) Urine pH 6.5 (5.0-8.0) Ur Specific [place] 1.015 (1.001-1.035) Urine Protein 1+ H (Negative) Urine Glucose (UA) Negative (Negative) Urine Ketones Negative (Negative) Urine Blood Small H (Negative) Urine Nitrite Positive H (Negative) Urine Bilirubin 1+ H (Negative) Urine Urobilinogen 2.0 (<2.0) mg/dL Ur Leukocyte Esterase Large H (Negative) Urine RBC 32 H (0-5) /hpf Urine WBC >182 H (0-5) /hpf Urine WBC Clumps Few H (None) /hpf Urine Bacteria Rare H (None) /hpf Urine Mucus Rare H (None) /hpf Coronavirus (PCR) (Not Detectd) 11/16/20 Range/Units 14:20 WBC (3.8-10.6) k/uL RBC (3.80-5.40) m/uL Hgb (11.4-16.0) gm/dL Hct (34.0-46.0) % MCV (80.0-100.0) fL MCH (25.0-35.0) pg MCHC (31.0-37.0) g/dL RDW (11.5-15.5) % Plt Count (150-450) k/uL MPV Neutrophils % % Lymphocytes % % Monocytes % % Eosinophils % % Basophils % % Neutrophils # (1.3-7.7) k/uL Lymphocytes # (1.0-4.8) k/uL Monocytes # (0-1.0) k/uL Eosinophils # (0-0.7) k/uL Basophils # (0-0.2) k/uL Sodium (137-145) mmol/L Potassium (3.5-5.1) mmol/L Chloride (98-107) mmol/L Carbon Dioxide (22-30) mmol/L Anion Gap mmol/L BUN (7-17) mg/dL Creatinine (0.52-1.04) mg/dL Est GFR (CKD-EPI)AfAm (>60 ml/min/1.73 sqM) Est GFR (CKD-EPI)NonAf (>60 ml/min/1.73 sqM) Glucose (74-99) mg/dL Calcium (8.4-10.2) mg/dL Total Bilirubin (0.2-1.3) mg/dL AST (14-36) U/L ALT (4-34) U/L Alkaline Phosphatase (38-126) U/L Total Protein (6.3-8.2) g/dL Albumin (3.5-5.0) g/dL Urine Color Urine Appearance (Clear) Urine pH (5.0-8.0) Ur Specific [place] (1.001-1.035) Urine Protein (Negative) Urine Glucose (UA) (Negative) Urine Ketones (Negative) Urine Blood (Negative) Urine Nitrite (Negative) Urine Bilirubin (Negative) Urine Urobilinogen (<2.0) mg/dL Ur Leukocyte Esterase (Negative) Urine RBC (0-5) /hpf Urine WBC (0-5) /hpf Urine WBC Clumps (None) /hpf Urine Bacteria (None) /hpf Urine Mucus (None) /hpf Coronavirus (PCR) Not Detected (Not Detectd) Disposition Clinical Impression: Pyelonephritis, Fever, Acute bronchitis Disposition: HOME SELF-CARE Condition: Good Additional Instructions: Please take Cipro as directed instead of Bactrim. Follow up on culture results. Drink plenty of fluids. Take Motrin and Tylenol for pain. Return to the emergency room for any worsening symptoms. Prescriptions: Ciprofloxacin HCl [Cipro] 500 mg PO Q12HR 7 Days #14 tab Is patient prescribed a controlled substance at d/c from ED?: No Referrals: Awais Phipps MD [Primary Care Provider] - 1-2 days Time of Disposition: 15:35
--- NOTE | 2020-11-16 14:39 | XR ---
EXAMINATION TYPE: XR chest 2V DATE OF EXAM: 11/16/2020 COMPARISON: 05/16/2019 TECHNIQUE: PA and lateral views submitted. HISTORY: Cough FINDINGS: The lungs are clear and there is no pneumothorax, pleural effusion, or focal pneumonia. Since inter stitium. Surgical clips overlying the right breast. Scoliosis of the spine. Generative changes of the spine. IMPRESSION: 1. Correlate for bronchitis or interstitial pneumonitis..
[2020-11-16] MEDS ORDERED: MORPHINE SULFATE 4 MG/ML SYRINGE IVP STA (14:44)
[2020-11-16] MEDS ORDERED: METOCLOPRAMIDE 5 MG/ML 2 ML VIAL IVP STA (14:44)
[2020-11-16] MEDS ORDERED: diphenhydrAMINE 50 MG/ML 1 ML VIAL IVP STA (14:44)
[2020-11-16] MEDS ORDERED: cefTRIAXone IN SWFI 1,000 MG/10 ML SYRINGE IVP STA (14:50)
[2020-11-16 15:07] VITALS: BP 153/81; PULSE 111; RESP 18; TEMP 100.9
== END 2020-11-16 15:49 | disposition home or self-care (01) ==
LOC: EC 13:10
DX: J40 Bronchitis, not specified as acute or chronic (principal); R50.9 Fever, unspecified; N12 Tubulo-interstitial nephritis, not specified as acute or chronic; K21.9 Gastro-esophageal reflux disease without esophagitis; I10 Essential (primary) hypertension; E07.9 Disorder of thyroid, unspecified; F41.9 Anxiety disorder, unspecified; F32.9 Major depressive disorder, single episode, unspecified; Z90.710 Acquired absence of both cervix and uterus; Z98.51 Tubal ligation status; Z20.822 Contact with and (suspected) exposure to COVID-19
CPT/HCPCS: 99283; 96374; 96375 ×2; 96361 ×2; 36415; 80053; 85025; 81001; 87086; 87635; 71046; J2270; J0696; J1885; 87077; 87186

== ENCOUNTER → 2021-02-15 | Outpatient (CLI) | payer BC, OTHER | END | disposition home or self-care (01) | LOC: LABWHC1 09:25 | PROVIDERS: ATTEND Emergency Medicine | DX: Z20.822 Contact with and (suspected) exposure to COVID-19 (principal) | CPT/HCPCS: 87635 ==

== ENCOUNTER → 2021-02-16 | Outpatient (CLI) | payer BC, OTHER | END | disposition home or self-care (01) | LOC: LABWHC1 10:31 | PROVIDERS: ATTEND Emergency Medicine | DX: Z20.822 Contact with and (suspected) exposure to COVID-19 (principal) | CPT/HCPCS: 87635 ==

== ENCOUNTER → 2021-02-24 | Outpatient (CLI) | payer BC ==
--- NOTE | 2021-02-24 13:51 | BD ---
EXAMINATION TYPE: Axial Bone Density DATE OF EXAM: 02/24/2021 COMPARISON: NONE CLINICAL HISTORY: Right-sided breast cancer. Height: 64 IN Weight: 180 LBS FRAX RISK QUESTIONS: Secondary Osteoporosis: 3. Menopause before 45: PARTIAL HYST AGE 42 RISK FACTORS HISTORY OF: Family History of Osteoporosis: YES GRANDMOTHER Active: YES Postmenopausal woman: PARTIAL HYST AGE 42 MEDICATIONS: Additional Medications: VIT D, FLEXERIL, SAVELLA, SINGULAIR, OMEPRAZOLE, ALLERGY MED, ARIMASONE,XOLAI R INJECTIONS, ZINC, VIT C, MELATONIN Additional History: BREAST CANCER EXAM MEASUREMENTS: Bone mineral densitometry was performed using the [employer] System. Bone mineral density as measured about the Lumbar spine is: ----- L1-L4(G/cm2): 1.355 T Score Values are as follows: ----- L2: 1.7 ----- L3: 1.8 ----- L4: 1.4 ----- L1-L4: 1.5 Bone mineral density BASELINE Bone mineral density about the R hip (g/cm2): 0.991 Bone mineral density about the L hip (g/cm2): 0.959 T Score values are as follows: -----R Neck: -0.3 -----L Neck: -0.6 -----R Total: 0.3 -----L Total: 0.3 Bone mineral density BASELINE IMPRESSION: Normal (Values between +1 and -1 indicate normal bone mass). Consider repeating this study in 5 year s or sooner if there is some new clinical indication. NOTE: T-SCORE=SD OF THE YOUNG ADULT MEAN.
== END | disposition home or self-care (01) ==
LOC: RADBDWWP 12:29
PROVIDERS: ATTEND Internal Medicine Hematology & Oncology
DX: Z78.0 Asymptomatic menopausal state (principal); C50.911 Malignant neoplasm of unspecified site of right female breast
CPT/HCPCS: 77080

== ENCOUNTER → 2021-03-15 | Outpatient (CLI) | payer BC, OTHER | END | disposition home or self-care (01) | LOC: LABWHC1 09:05 | PROVIDERS: ATTEND Emergency Medicine | DX: U07.1 COVID-19 (principal) | CPT/HCPCS: 87635 ==

== ENCOUNTER → 2021-05-12 | Outpatient (CLI) | payer BC, OTHER ==
--- NOTE | 2021-05-13 04:45 | MR ---
EXAMINATION TYPE: MR elbow LT wo con DATE OF EXAM: 05/12/2021 COMPARISON: None HISTORY: Left elbow pain, hx fall 1 year ago. Multiplanar multi echo imaging of the left elbow without contrast. The proximal radius and ulna appear intact. Triceps tendon is intact. Distal humerus is intact. There is no evidence of elbow joint effusion. The brachialis tendon and the biceps tendon appear intact. N o evidence of any significant soft tissue fluid accumulation. The collateral ligaments appear intact. IMPRESSION: Negative MR scan of the left elbow. No evidence of ligament or tendon tear.
== END | disposition home or self-care (01) ==
LOC: RADMRIMAIN 17:46
PROVIDERS: ATTEND Nurse Practitioner Adult Health
DX: M25.222 Flail joint, left elbow (principal)

== ENCOUNTER → 2021-06-30 | Outpatient (CLI) | payer BC ==
--- NOTE | 2021-07-03 11:53 | MM ---
Reason for exam: screening (asymptomatic). Last mammogram was performed 1 year ago. History: Patient is postmenopausal, has history of breast cancer at age 46, and has history of high-risk lesion on a previous biopsy at age 46. Family history of breast cancer in maternal aunt at age 50 and breast cancer in maternal grandmother. Malignant MG pre op needle loc RT of the right breast, March 28, 2017. High risk MG stereo VAD BX RT of the right breast, March 07, 2017. Benign right breast aspiration of the right breast, June 15, 2011. Taking tamoxifen beginning at age 46. Taking antineoplastic for 6 months beginning at age 46. Physical Findings: A clinical breast exam by your physician is recommended on an annual basis and results should be correlated with mammographic findings. MG 3D Screening Mammo W/Cad Bilateral CC and MLO view(s) were taken. Prior study comparison: June 29, 2020, bilateral MG 3d diag mammo w/cad [facility]. October 28, 2018, right breast MG diagnostic mammo RT w CAD. The breast tissue is heterogeneously dense. This may lower the sensitivity of mammography. Stable benign calcifications. Stable post operative changes right breast. No significant changes when compared with prior studies. ASSESSMENT: Benign, BI-RAD 2 RECOMMENDATION: Routine screening mammogram of both breasts in 1 year.
== END | disposition home or self-care (01) ==
LOC: RADMAMWWP 10:08
PROVIDERS: ATTEND Internal Medicine Hematology & Oncology
DX: Z12.31 Encounter for screening mammogram for malignant neoplasm of breast (principal); Z78.0 Asymptomatic menopausal state; Z85.3 Personal history of malignant neoplasm of breast; Z80.3 Family history of malignant neoplasm of breast
CPT/HCPCS: 77063; 77067

== ENCOUNTER → 2021-07-26 | Outpatient (CLI) | payer BC, OTHER ==
--- NOTE | 2021-07-26 15:46 | XR ---
EXAMINATION TYPE: XR chest 2V DATE OF EXAM: 07/26/2021 COMPARISON: [id number] TECHNIQUE: PA and lateral views submitted. HISTORY: Fever FINDINGS: The lungs are clear and there is no pneumothorax, pleural effusion, or focal pneumonia. Scoliosis o f the spine. Heart size normal. No overt failure. Arthropathy of the shoulder. Surgical clip overlyin g the right breast. Degenerative change of the spine. Hyperinflation suggests asthma or COPD. IMPRESSION: 1. No acute process.
== END | disposition home or self-care (01) ==
LOC: LABWHC1 14:21
PROVIDERS: ATTEND Internal Medicine
DX: J06.9 Acute upper respiratory infection, unspecified (principal)
CPT/HCPCS: 71046; 87502

== ENCOUNTER → 2022-03-06 | Outpatient (CLI) | payer BC ==
--- NOTE | 2022-03-07 10:53 | XR ---
EXAMINATION TYPE: XR knee 4V RT DATE OF EXAM: 03/06/2022 7:18 PM INDICATION: Patient age:Female; 51 years old; Reason for study: PAIN; COMPARISON: None. TECHNIQUE: The Right knee(s) was examined in Frontal, lateral and oblique projections. FINDINGS: No evidence of any acute osseous pathology, joint space narrowing, soft tissue swelling, or joint effusion is noted. Fabella is present. Minimal osteophyte fraction of tibial plateau, patella and femoral condyles. IMPRESSION: 1. No acute osseous pathology. 2. Normal tricompartmental osteoarthritic changes.
== END | disposition home or self-care (01) ==
LOC: RADXRMAIN 18:42
PROVIDERS: ATTEND Internal Medicine
DX: M17.11 Unilateral primary osteoarthritis, right knee (principal)

== ENCOUNTER → 2022-07-04 | Outpatient (CLI) | payer BC ==
--- NOTE | 2022-07-05 08:26 | MM ---
Reason for Exam: Screening (asymptomatic). Last screening mammogram was performed 12 month(s) ago. Patient History: Menarche at age 12. First Full-Term at age 23. Postmenopausal. Breast cancer, right, age 46. Currently using Tamoxifen, starting at age 46. 03/28/2017, Malignant Core Biopsy on the right side. 03/07/2017, High risk Core Biopsy on the right side. 06/15/2011, Benign Cyst Aspiration on the right side. Maternal grandmother had breast cancer at or over age 50. Maternal aunt had breast cancer, age 50. Prior Study Comparison: 02/26/2017 Bilateral Diagnostic Mammogram, [facility]. 09/24/2017 Right Diagnostic Mammogram, [facility]. 03/18/2018 Bilateral Diagnostic Mammogram, [facility]. 10/28/2018 Right Diagnostic Mammogram, [facility]. 06/29/2020 Bilateral Diagnostic Mammogram, [facility]. 06/30/2021 Bilateral Screening Mammogram, [facility]. Tissue Density: The breast tissue is heterogeneously dense. This may lower the sensitivity of mammography. Findings: Analyzed By CAD. There is no suspicious group of microcalcifications or new suspicious mass in either breast. Overall Assessment: Benign, BI-RAD 2 Management: Screening Mammogram of both breasts in 1 year. A clinical breast exam by your physician is recommended on an annual basis and results should be correlated with mammographic findings. Electronically signed and approved by: Man Ricketts M.D. Radiologis
== END | disposition home or self-care (01) ==
LOC: RADMAMWWP 07:08
PROVIDERS: ATTEND Internal Medicine
DX: Z12.31 Encounter for screening mammogram for malignant neoplasm of breast (principal); Z78.0 Asymptomatic menopausal state; Z80.3 Family history of malignant neoplasm of breast; Z85.3 Personal history of malignant neoplasm of breast; Z98.890 Other specified postprocedural states
CPT/HCPCS: 77063; 77067

== ENCOUNTER → 2022-12-26 | Outpatient (CLI) | payer BC ==
--- NOTE | 2022-12-26 08:01 | MM ---
Reason for Exam: Clinical finding. Last screening mammogram was performed 6 month(s) ago. Patient History: Menarche at age 12. First Full-Term at age 23. Postmenopausal. Breast cancer, right, age 46. Currently using Tamoxifen, starting at age 46. 03/28/2017, Malignant Core Biopsy on the right side. 03/07/2017, High risk Core Biopsy on the right side. 06/15/2011, Benign Cyst Aspiration on the right side. Maternal grandmother had breast cancer at or over age 50. Maternal aunt had breast cancer, age 50. Tissue Density: The breast tissue is heterogeneously dense. This may lower the sensitivity of mammography. Findings: Analyzed By CAD. Postoperative lumpectomy changes upper outer right breast. No evidence for recurrent or residual mass. No suspicious microcalcifications. Overall Assessment: Incomplete: need additional imaging evaluation, BI-RAD 0 Management: Diagnostic Breast Ultrasound of both breasts. . Results were given to the patient verbally at the time of exam. Patient should continue monthly self-breast exams. A clinical breast exam by your physician is recommended on an annual basis. This exam should not preclude additional follow-up of suspicious palpable abnormalities. Note on Amanda scores and lifetime risk: 1. A Amanda score greater than 3% is considered moderate risk. If this is the case, consider specialist referral to assess eligibility for a risk reducing agent. 2. If overall lifetime risk for the development of breast cancer is 20% or higher, the patient may qualify for future screening with alternating mammogram and breast MRI. Electronically signed and approved by: Man Ricketts M.D. Radiologis
--- NOTE | 2022-12-27 14:35 | USB ---
Reason for Exam: Clinical finding. Patient History: Menarche at age 12. First Full-Term at age 23. Hysterectomy at age 42. Postmenopausal. Breast cancer, right, age 46. Currently using Tamoxifen, starting at age 46. 03/28/2017, Malignant Core Biopsy on the right side. 03/07/2017, High risk Core Biopsy on the right side. 06/15/2011, Benign Cyst Aspiration on the right side. Maternal grandmother had breast cancer at or over age 50. Maternal aunt had breast cancer, age 50. Technique: Method: Whole Breast Handheld. Prior Study Comparison: 06/29/2020 Bilateral Diagnostic Mammogram, [facility]. 06/30/2021 Bilateral Screening Mammogram, [facility]. 07/04/2022 Bilateral MG 3D screening mammo w/cad, [facility]. Findings: The whole breast of both breasts, the axilla of both breasts and the retroareolar of both breasts were scanned. No solid or cystic masses are identified.. Correlate clinically. Overall Assessment: Negative, BI-RAD 1 Management: Diagnostic Mammogram of both breasts in 1 year. A clinical breast exam by your physician is recommended on an annual basis and results should be correlated with mammographic findings. This exam should not preclude additional follow-up of suspicious palpable abnormalities. Results were given to the patient verbally at the time of exam. Electronically signed and approved by: Man Ricketts M.D. Radiologis
== END | disposition home or self-care (01) ==
LOC: RADMAMWWP 07:32
PROVIDERS: ATTEND Internal Medicine
DX: N64.4 Mastodynia (principal); R92.333 Mammographic heterogeneous density, bilateral breasts; Z80.3 Family history of malignant neoplasm of breast; Z78.0 Asymptomatic menopausal state; Z85.3 Personal history of malignant neoplasm of breast
CPT/HCPCS: 77062; 77066

== ENCOUNTER → 2023-06-08 | Outpatient (CLI) | payer BC ==
[2023-06-08 22:52] LABS: Basophils # (A) 0.08 X 10*3/uL (0.00-0.10); Basophils % (A) 1.8 %; Eosinophils # (A) 0.43 X 10*3/uL (0.04-0.35); Eosinophils % (A) 9.7 %; HCT 45.9 % (37.2-46.3); HGB 14.6 g/dL (12.0-15.0); Immature Grans, Automated 0 %; Lymphocytes # (A) 1.78 X 10*3/uL (0.90-5.00); Lymphocytes % (A) 40.2 %; MCH 28.2 pg (27.0-32.0); MCHC 31.8 g/dL (32.0-37.0); MCV 88.6 FL (80.0-97.0); Mean Platelet Volume 10.6 FL (9.5-12.2); Monocytes # (A) 0.33 X 10*3/uL (0.20-1.00); Monocytes % (A) 7.4 %; NRBC Per 100 WBC 0 X 10*3/uL (0.00-0.01); Neutrophils # (A) 1.81 X 10*3/uL (1.80-7.70); Neutrophils % (A) 40.9 %; Platelet Count 387 X 10*3/uL (140-440); RBC 5.18 X 10*6/uL (4.10-5.20); RDW 12.7 % (11.5-14.5); WBC 4.43 X 10*3/uL (4.50-10.00)
[2023-06-08 23:34] LABS: ALT 56 U/L (8-44); AST 37 U/L (13-35); Albumin 4.5 g/dL (3.8-4.9); Albumin/Globulin Ratio 1.55 Ratio (1.60-3.17); Alkaline Phosphatase 103 U/L (41-126); BUN/Creat Ratio 18.11 Ratio (12.00-20.00); Blood Urea Nitrogen 16.3 mg/dL (9.0-27.0); Calcium 10.1 mg/dL (8.7-10.3); Carbon Dioxide 26.8 mmol/L (21.6-31.8); Chloride 101 mmol/L (96-109); Chol/HDL Ratio 3.18 Ratio; Globulin 2.9 g/dL (1.6-3.3); Glucose 86 mg/dL (70-110); LDL Cholesterol,Calculated 148.5 mg/dL (0.0-131.0); Magnesium 2.2 mg/dL (1.5-2.4); Potassium 4.5 mmol/L (3.5-5.5); Sodium 138 mmol/L (135-145); Total Bilirubin 0.5 mg/dL (0.3-1.2); Total Protein 7.4 g/dL (6.2-8.2); VLDL Calculation 13.42 mg/dL (5.00-40.00)
== END | disposition home or self-care (01) ==
LOC: LABWHC1 11:44
PROVIDERS: ATTEND Internal Medicine
DX: Z00.00 Encounter for general adult medical examination without abnormal findings (principal)
CPT/HCPCS: 36415; 80053; 80061; 83735; 84443; 85025

== ENCOUNTER → 2023-06-11 | Outpatient (CLI) | payer BC ==
--- NOTE | 2023-06-11 08:51 | US ---
EXAMINATION TYPE: US liver DATE OF EXAM: 06/11/2023 COMPARISON: Renal US 2013 CLINICAL INDICATION: Female, 52 years old with history of R74.01 ELEVATION OF LEVELS OF LIVER TRANSAM INASE L; Elevated transaminase level. Patient states "they think there has been something on my kidne y since -an emptying issue". TECHNIQUE: Multiple sonographic images of the right upper quadrant are obtained. FINDINGS: EXAM MEASUREMENTS: Liver Length: 14.1 cm Gallbladder Wall: 0.17 cm CBD: 0.23 cm Right Kidney: 10.9 x 5.9 x 4.4 cm LENS AND FRAMES PRESCRIPTION CLERK NOTES: Exam is limited due to gas. Pancreas: No abnormalities seen Liver: Appears wnl Gallbladder: *Hyperechoic area seen that appears to be attached to the gallbladder wall: 0.4 x 0.4 x 0.3 cm. Evidence for sonographic Sprague's sign: No CBD: Appears wnl Right Kidney: Renal pelvis appears prominent. Incidental appearance of hydronephrosis within left kidney, initially seen when imaging pancreas. T his was noted on renal ultrasound in 2014 as well. IMPRESSION: I cannot exclude a gallbladder polyp. Hydronephrosis left kidney.
== END | disposition home or self-care (01) ==
LOC: RADUSWWP 08:10
PROVIDERS: ATTEND Internal Medicine
DX: N13.30 Unspecified hydronephrosis (principal); R74.01 Elevation of levels of liver transaminase levels
CPT/HCPCS: 76705

== ENCOUNTER → 2023-12-31 | Outpatient (CLI) | payer BC ==
--- NOTE | 2023-12-31 18:03 | US ---
EXAMINATION TYPE: US abdomen complete DATE OF EXAM: 12/31/2023 COMPARISON: Ultrasound liver 06/11/23, renal ultrasound 05/18/2013 CLINICAL INDICATION: Female, 53 years old with history of K82.4 CHOLESTEROLOSIS OF GALLBLADDER; Hx of a polyp TECHNIQUE: Grayscale and color Doppler imaging of the abdomen was performed. FINDINGS: EXAM MEASUREMENTS: Liver Length: 14.0 cm Gallbladder Wall: 0.19 cm CBD: 0.27 cm Spleen: 10.4 cm Right Kidney: 10.4 x 5.8 x 3.8 cm Left Kidney: 10.6 x 4.2 x 4.8 cm DIRECTOR OF MARKET INTELLIGENCE NOTES: Pancreas: wnl Liver: wnl Gallbladder: small hypoechoic area measuring 0.35cm Evidence for sonographic Sprague's sign: No CBD: wnl Spleen: wnl Right Kidney: dilated renal pelvis Left Kidney: moderate to severe hydronephrosis seen Upper IVC: wnl Abd Aorta: wnl The liver is homogenous. The intrahepatic portion of the IVC and proximal abdominal aorta are within normal limits. No gallbladder wall thickening. Stable nonshadowing 4 mm lesion within the gallbladde r. Appears to be attached to the gallbladder wall again. No surrounding fluid. Negative sonographic M urphy sign. Common bile duct is unremarkable. The visualized portions of the pancreas are homogenous . The spleen is unremarkable. Mild prominence of the right renal pelvis. Moderate to severe left hyd ronephrosis. No suspicious renal lesions identified. Cortical medullary differentiation is maintained bilaterally. IMPRESSION: 1. Stable 4 mm gallbladder polyp. 2. Redemonstration of moderate to severe left hydronephrosis dating back to 2013 renal ultrasound. [facility], , 12/31/2023 6:00 PM
== END | disposition home or self-care (01) ==
LOC: RADUSWWP 06:59
PROVIDERS: ATTEND Internal Medicine
CPT/HCPCS: 76700

== ENCOUNTER → 2024-01-10 | Outpatient (CLI) | payer BC ==
--- NOTE | 2024-01-10 07:53 | MM ---
Reason for Exam: Known biopsy proven malignancy. Last mammogram was performed 1 year(s) and 1 month(s) ago. Patient History: Menarche at age 12. First Full-Term at age 23. Hysterectomy at age 42. Postmenopausal. Breast cancer, right, age 46. Tamoxifen, starting at age 46. 03/28/2017, Malignant Core Biopsy on the right side. 03/07/2017, High risk Core Biopsy on the right side. 06/15/2011, Benign Cyst Aspiration on the right side. Maternal grandmother had breast cancer at or over age 50. Maternal aunt had breast cancer, age 50. Tissue Density: The breasts are heterogeneously dense, which may obscure small masses. Findings: Analyzed By CAD. Postsurgical and posttreatment change right breast. A couple areas of nodularity anterior right breast likely lower outer quadrant do not clearly persist on additional views. An elongated oval 1.2 cm asymmetric density on the spot 3-D MLO view is located laterally just below the retroareolar plane. This may be further evaluated with ultrasound. There are some grouped calcifications posterior upper outer quadrant right breast located behind the patient's surgical site. On occasion, some of these calcifications may be located within the developing oil cyst. Some adjacent punctate calcifications are noted as well on the CC view. Overall Assessment: Incomplete: need additional imaging evaluation, BI-RAD 0 Management: Diagnostic Breast Ultrasound of the right breast. [facility], , 01/10/2024 7:49 AM. Electronically signed and approved by: Jose Cruz M.D. Radiologist
--- NOTE | 2024-01-10 08:06 | USB ---
Patient History: Menarche at age 12. First Full-Term at age 23. Hysterectomy at age 42. Postmenopausal. Breast cancer, right, age 46. Tamoxifen, starting at age 46. 03/28/2017, Malignant Core Biopsy on the right side. 03/07/2017, High risk Core Biopsy on the right side. 06/15/2011, Benign Cyst Aspiration on the right side. Maternal grandmother had breast cancer at or over age 50. Maternal aunt had breast cancer, age 50. Technique: Method: Targeted. Doppler: Color. Patient Position: Supine. Prior Study Comparison: 06/30/2021 Bilateral Screening Mammogram, [facility]. 07/04/2022 Bilateral MG 3D screening mammo w/cad, [facility]. 12/26/2022 Bilateral MG 3D diag mammo w/cad [facility], [facility]. Findings: The lateral section of the breast of the right breast, the axilla of the right breast and the retroareolar of the right breast were scanned. Targeted scanning right breast 7:00 to 10:00 position including scanning of the subareolar region and axilla. There is a elongated undulating area measuring 2.1 x 0.9 x 0.7 cm at the 9:00 position, 3 cm from the nipple. Possible focal breast tissue. Reassess on follow-up. No other solid or cystic lesion or axillary lymphadenopathy. Overall Assessment: Probably benign, BI-RAD 3 Management: Diagnostic Mammogram of the right breast in 6 months. Diagnostic Breast Ultrasound of the right breast in 6 months. Mammographic follow-up for the posterior upper-outer quadrant calcifications and ultrasound follow-up for the 9:00 area. A clinical breast exam by your physician is recommended on an annual basis and results should be correlated with mammographic findings. This exam should not preclude additional follow-up of suspicious palpable abnormalities. Results were given to the patient verbally at the time of exam. [facility], , 01/10/2024 8:03 AM. Electronically signed and approved by: Jose Cruz M.D. Radiologist
== END | disposition home or self-care (01) ==
LOC: RADMAMWWP 06:54
PROVIDERS: ATTEND Internal Medicine
DX: C50.911 Malignant neoplasm of unspecified site of right female breast (principal); R92.333 Mammographic heterogeneous density, bilateral breasts; N64.4 Mastodynia; Z78.0 Asymptomatic menopausal state; Z80.3 Family history of malignant neoplasm of breast
CPT/HCPCS: 77062; 77066

== ENCOUNTER → 2024-03-03 | Outpatient (CLI) | payer BC ==
--- NOTE | 2024-03-03 10:06 | CT ---
EXAMINATION TYPE: CT abdomen pelvis wo con CT DLP: 284.60 mGycm, Automated exposure control for dose reduction was used. DATE OF EXAM: 03/03/2024 9:41 AM COMPARISON: Abdominal ultrasound 12/31/2023, liver ultrasound 06/11/2023 CLINICAL INDICATION:Female, 53 years old with history of N13.39 hydronephrosis; LT hydronephrosis TECHNIQUE: Standard CT of the abdomen and pelvis without IV or oral contrast. Lack of IV or oral co ntrast limits evaluation of solid and hollow organ viscera. Coronal and sagittal reformats were perfo rmed. FINDINGS: LOWER CHEST: Unremarkable ABDOMEN LIVER: Unremarkable noncontrast appearance. GALLBLADDER AND BILE DUCTS: Unremarkable noncontrast appearance. PANCREAS: Unremarkable noncontrast appearance. SPLEEN: Unremarkable noncontrast appearance. ADRENAL GLANDS: Unremarkable noncontrast appearance.. KIDNEYS AND URETERS: No right hydronephrosis. No right renal calculi. Moderate to severe left hydrone phrosis is redemonstrated. No hydroureter. No obstructing calculus identified. No cortical renal thin berna identified. PELVIS BLADDER: Incompletely distended but grossly unremarkable. REPRODUCTIVE: Uterus is surgically absent or atrophic. ABDOMEN & PELVIS STOMACH AND BOWEL: Stomach and duodenum are unremarkable. No focal wall thickening or surrounding inf lammatory changes. No evidence of bowel obstruction. PERITONEUM: No evidence of pneumoperitoneum or free fluid. VASCULATURE: No evidence of aortic aneurysm. Couple of punctate pelvic phleboliths. MUSCULOSKELETAL: No acute osseous abnormalities. Scoliotic curvature of the visualized thoracolumbar spine. Degenerative disc disease most pronounced at L5-S1. LYMPH NODES: No gross evidence for lymphadenopathy. SOFT TISSUE/ABDOMINAL WALL: Unremarkable IMPRESSION: Moderate to severe left hydronephrosis without obstructing calculus identified. No hydroureter. Findi ngs raise concern for nonspecific UPJ obstruction. Consider urology consult. [facility], , 03/03/2024 10:04 AM
== END | disposition home or self-care (01) ==
LOC: RADCTMAIN 09:21
PROVIDERS: ATTEND Urology
DX: N13.39 Other hydronephrosis (principal)
CPT/HCPCS: 74176

== ENCOUNTER → 2024-03-13 | Outpatient (CLI) | payer BC ==
[~2024-03-13] MED LIST changes: -ALPRAZolam 0.5 MG TAB PO PRN; -DEXAMETHASONE SOD PHOSPHATE 10 MG/ML 1 ML VIAL IV ONE; +FUROSEMIDE 10 MG/ML 2 ML VIAL IV ONE; -HEPARIN SODIUM,PORCINE 5,000 UNIT/ML 1 ML VIAL SQ ONE; -HYDROmorphone 0.5 MG/0.5 ML SYRINGE IVP PRN; -LACTATED RINGERS 1,000 ML IV SCH; -LIDOCAINE 1% 20 ML VIAL (10MG/ML) FOR IV START INTRADERMA PRN; -ONDANSETRON 4 MG/2 ML VIAL IVP PRN; -Pre Op ABX Message 1 EACH MISC MISCELLANE ONE; -SCOPOLAMINE 1.5MG/72HR PATCH TRANSDERM ONE
--- NOTE | 2024-03-14 15:22 | NM ---
EXAMINATION TYPE: NM lasix renogram DATE OF EXAM: 03/13/2024 COMPARISON: 03/03/2024 CLINICAL INDICATION: Female, 53 years old with history of N13.39 OTH HYDRONEPHROSIS; Following administration of 10.2 mCi Tc 99m MAG3 with 20mg Lasix. Immediate images post injection FINDINGS: Left: 39 %. Right: 61 %. Max renal flow left: 24.5 minutes. Max renal flow right: 13.5 minutes. Satisfactory accumulation of radiotracer within both renal collecting systems. After the administrati on of Lasix, no significant excretion is seen within the bilateral renal cortical systems.. T 1/2 left: NA minutes. T 1/2 right: NA minutes. IMPRESSION: Right dominant uptake with poor renal flow and the left kidney. There is poor response to Lasix admin istration bilaterally. Correlate for IV malfunction with the Lasix of administration. Consider repeat exam and clinical correlation with Lasix administration. There is evidence of dilated left renal collecting system which is confirmed with CT imaging. [facility], , 03/14/2024 3:19 PM
== END | disposition home or self-care (01) ==
LOC: RADNMMAIN 12:44
PROVIDERS: ATTEND Urology
DX: N13.39 Other hydronephrosis (principal)
CPT/HCPCS: 78708; A9562

== ENCOUNTER → 2024-07-24 | Outpatient (CLI) | payer BC ==
--- NOTE | 2024-07-24 07:45 | USB ---
Reason for Exam: Clinical finding. Patient History: Menarche at age 12. First Full-Term at age 23. Hysterectomy at age 42. Postmenopausal. Breast cancer, right, age 46. Tamoxifen, starting at age 46. 03/28/2017, Malignant Core Biopsy on the right side. 03/07/2017, High risk Core Biopsy on the right side. 06/15/2011, Benign Cyst Aspiration on the right side. Maternal grandmother had breast cancer at or over age 50. Maternal aunt had breast cancer, age 50. Technique: Method: Targeted. Prior Study Comparison: 07/04/2022 Bilateral MG 3D screening mammo w/cad, [facility]. 12/26/2022 Bilateral MG 3D diag mammo w/cad [facility], [facility]. 01/10/2024 Bilateral MG 3D diag mammo w/cad [facility], [facility]. Findings: The upper outer quadrant of the right breast, the axilla of the right breast and the retroareolar of the right breast were scanned. Targeted ultrasound. No solid or cystic masses are identified. No suspicious fluid collection. No suspicious right axillary adenopathy. Overall Assessment: Negative, BI-RAD 1 Management: Screening Mammogram of both breasts in 6 months. A clinical breast exam by your physician is recommended on an annual basis and results should be correlated with mammographic findings. This exam should not preclude additional follow-up of suspicious palpable abnormalities. Results were given to the patient verbally at the time of exam. [facility], , 07/24/2024 7:42 AM. Electronically signed and approved by: Jl Hinson M.D.
--- NOTE | 2024-07-27 11:38 | MM ---
Reason for Exam: Follow-up at short interval from prior study. Last screening mammogram was performed 6 month(s) ago. Patient History: Menarche at age 12. First Full-Term at age 23. Hysterectomy at age 42. Postmenopausal. Breast cancer, right, age 46. Tamoxifen, starting at age 46. 03/28/2017, Malignant Core Biopsy on the right side. 03/07/2017, High risk Core Biopsy on the right side. 06/15/2011, Benign Cyst Aspiration on the right side. Maternal grandmother had breast cancer at or over age 50. Maternal aunt had breast cancer, age 50. Prior Study Comparison: 07/04/2022 Bilateral MG 3D screening mammo w/cad, [facility]. 12/26/2022 Bilateral MG 3D diag mammo w/cad [facility], [facility]. 01/10/2024 Bilateral MG 3D diag mammo w/cad [facility], [facility]. Tissue Density: Right: The breasts are heterogeneously dense, which may obscure small masses. Findings: Analyzed By CAD. Surgical clips in the right breast posterior upper outer quadrant at site of distortion are redemonstrated. There are adjacent benign-appearing round calcification redemonstrated. A round density anterior to the clips on cc view is unchanged from most recent prior mammogram. No new or enlarging mass or suspicious group of microcalcifications in the right breast. Overall Assessment: Benign, BI-RAD 2 Management: Screening Mammogram of both breasts in 6 months. Return to routine follow-up. Results were given to the patient verbally at the time of exam. Patient should continue monthly self-breast exams. A clinical breast exam by your physician is recommended on an annual basis. This exam should not preclude additional follow-up of suspicious palpable abnormalities. Note on Amanda scores and lifetime risk: 1. A Amanda score greater than 3% is considered moderate risk. If this is the case, consider specialist referral to assess eligibility for a risk reducing agent. 2. If overall lifetime risk for the development of breast cancer is 20% or higher, the patient may qualify for future screening with alternating mammogram and breast MRI. [facility], , 07/24/2024 7:25 AM. Electronically signed and approved by: Jl Hinson M.D.
== END | disposition home or self-care (01) ==
LOC: RADUSWWP 07:00
PROVIDERS: ATTEND Internal Medicine
DX: R92.8 Other abnormal and inconclusive findings on diagnostic imaging of breast (principal); Z80.3 Family history of malignant neoplasm of breast; Z78.0 Asymptomatic menopausal state; Z85.3 Personal history of malignant neoplasm of breast
CPT/HCPCS: 77061; 77065